=== PATIENT | female | born 1970 | race Caucasian/White ===

== ENCOUNTER → 2021-04-20 | Outpatient (CLI) | payer OTHER ==
[~2021-04-20] MED LIST: ARIP2TAB3 PO; IOHEXOL 240 MG/ML 50ML VIAL. PO ONE; IOHEXOL 300 MG/ML 100ML VIAL. IV ONE; LORA2ORA7 PO
--- NOTE | 2021-04-21 10:05 | KCIC ---
Study: CT abdomen/pelvis with intravenous contrast Indication: Left lower quadrant pain. History of left ovarian cysts. Comparison: None. Technique: Helical CT imaging performed of the abdomen and pelvis after the intravenous administratio n of 90 cc Omnipaque 300 contrast. Sagittal and coronal reformats were obtained. One or more of the following individualized dose reduction techniques were utilized for this examinat ion: 1. Automated exposure control 2. Adjustment of the mA and/or kV according to patient size 3. Use of iterative reconstruction technique. Findings: Chest: Unremarkable visualized lungs and mediastinal contents. Liver: Numerous subcentimeter hepatic cystic foci. Hepatic steatosis. Gallbladder/Biliary Tree: Surgically absent gallbladder. Unremarkable biliary tree. Pancreas: Unremarkable. Spleen: Within the broad range of normal for size at under 13 cm in maximum dimension. Adrenal Glands: No adrenal gland mass. Kidneys/Ureters/Bladder: Probable small upper pole renal cyst on the left. Symmetric renal parenchyma l enhancement. Extrarenal pelvis configuration bilaterally. No hydronephrosis. Unremarkable bladder. Reproductive Organs: Rounded cystic area near the fundal endometrium could represent an endometrial/s ubendometrial cyst measuring up to 0.9 cm. Note is made of a reported history of cervical ablation. L ow-attenuation along the posterior margin of the uterine body is artifact from beam hardening. Small amount of gas and possible fluid within the cervical/vaginal canal, image 31 series 5. Left ovarian/p araovarian cystic focus measuring up to 2.1 cm. Internal density of approximately 8 Hounsfield units. Mildly thickened but smooth wall. No significant finding at the right adnexa. Colon: No localized wall thickening or pericolonic inflammation. Appendix: Normal. Small Bowel: Within normal limits for course and caliber. Stomach: Unremarkable. Vasculature: No significant finding. Lymph Nodes: No lymphadenopathy by size criteria. Peritoneum and Body Wall: Unremarkable. Bones: Lower lumbar facet arthrosis greatest at L4-L5 which results in grade 1 anterolisthesis of L4 on L5. Mild disc space narrowing at this level. A few Schmorl's nodes. Miscellaneous: None. Impression: 1. Left ovarian/paraovarian cystic focus measuring up to 2.1 cm. Mildly thick wall but without suspi cious nodularity or septations. The internal density is relatively simple at 8 Hounsfield units. Part icularly given patient age this is not suspicious for malignancy at this time. Ultrasound follow-up c ould be considered depending on risk factors. Unremarkable right adnexa. 2. Small cystic focus in the region of the fundal endometrium measuring up to 0.9 cm. An endometrial /subendometrial cyst is favored given density. The patient reports no chance of . 3. Numerous subcentimeter hepatic cystic foci which are statistically most likely benign. Small cyst ic focus at the upper pole of the left kidney as well. 4. Hepatic steatosis. Surgically absent gallbladder. Lower lumbar facet arthrosis greatest at L4-L5 and generative grade 1 anterolisthesis of L4 on L5. Electronically signed by: SAMY GARCIA MD (04/21/2021 10:03 AM) [id number]
== END ==
LOC: KCIC MAMMO 14:48
PROVIDERS: ATTEND Nurse Practitioner
DX: Z12.73 Encounter for screening for malignant neoplasm of ovary (principal); M47.816 Spondylosis without myelopathy or radiculopathy, lumbar region; M43.16 Spondylolisthesis, lumbar region; M48.061 Spinal stenosis, lumbar region without neurogenic claudication; M51.46 Schmorl's nodes, lumbar region; N83.202 Unspecified ovarian cyst, left side; K76.0 Fatty (change of) liver, not elsewhere classified; Z90.49 Acquired absence of other specified parts of digestive tract
CPT/HCPCS: 74177; Q9966; Q9967